=== PATIENT | male | born 2000 | race Caucasian/White ===

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

== ENCOUNTER 2020-05-13 08:24 | Day surgery (SDC) | payer OTHER ==
[2020-05-09 11:32] VITALS: BMI 28.5
[2020-05-13 08:44] LABS: #Eosinphils 0.1 thou/uL (0.0-0.7); #Lymphocytes 1.7 thou/uL (1.20-3.40); #Monocytes 0.3 thou/uL (0.11-0.59); #Neutrophils 3.5 thou/uL (1.40-6.50); %Basophils 0.6 % (0.0-1.0); %Eosinophils 1.1 % (0.0-10.0); %Lymphocytes 30.5 % (21.0-51.0); %Monocytes 5.9 % (0.0-10.0); %Neutrophils 61.9 % (42.0-75.0); Hemoglobin 16.7 g/dL (14.0-18.0); Mean Corpuscular HGB CONC 34.5 g/dL (32.0-36.0); Mean Corpuscular Hemoglobin 32.4 pg (27.0-31.0); Mean Platelet Volume 5.5 fL (7.4-10.4); Platelet Count 317 thou/uL (130-400); RBC Distribution Width 12.1 % (11.5-14.5); Red Blood Cell (RBC) Count 5.16 mill/uL (4.70-6.10); White Blood Cell (WBC) Count 5.7 thou/uL (4.8-10.8)
[2020-05-13 08:53] LABS: PTT 29.1 sec (22.9-36.1); Prothrombin Time 13.4 sec (12.0-14.7)
[2020-05-13 09:38] VITALS: BP 134/66; TEMP 98.8
== END 2020-05-13 12:50 | disposition home or self-care (01) ==
LOC: CT 08:24
PROVIDERS: ATTEND Surgery
PROC: BW201ZZ Computerized Tomography (CT Scan) of Abdomen using Low Osmolar Contrast (ICD-10-PCS; principal; 2020-05-13)
PROC: 0WBH3ZX Excision of Retroperitoneum, Percutaneous Approach, Diagnostic (ICD-10-PCS; principal; 2020-05-13)
DX: R19.09 Other intra-abdominal and pelvic swelling, mass and lump (principal); F12.11 Cannabis abuse, in remission; F17.290 Nicotine dependence, other tobacco product, uncomplicated; F32.9 Major depressive disorder, single episode, unspecified; Z79.899 Other long term (current) drug therapy
CPT/HCPCS: 36415; 49180; 77012; 85025; 85610; 85730; 88172; 88173

== ENCOUNTER 2020-06-13 09:07 | Day surgery (SDC) | payer OTHER ==
[2020-06-12 13:45] VITALS: BMI 28.5
[2020-06-13 10:11] VITALS: BP 154/66; TEMP 97
== END 2020-06-13 12:30 | disposition home or self-care (01) ==
LOC: CT 09:07
PROVIDERS: ATTEND Surgery
PROC: 0JB83ZX Excision of Abdomen Subcutaneous Tissue and Fascia, Percutaneous Approach, Diagnostic (ICD-10-PCS; principal; 2020-06-13)
DX: R59.0 Localized enlarged lymph nodes (principal); R19.09 Other intra-abdominal and pelvic swelling, mass and lump; F12.11 Cannabis abuse, in remission; Z87.891 Personal history of nicotine dependence
CPT/HCPCS: 74150; 77002; 88184; 88307; 88333; 88341; 88342